=== PATIENT | female | born 1980 | race Caucasian/White ===

== ENCOUNTER → 2019-06-14 | Outpatient (CLI) | payer BC ==
--- NOTE | 2019-06-14 15:04 | RAD ---
HAND RIGHT 2V: DATE: 06/14/2019 12:00 AM INDICATION: Shut door on hand COMPARISON: None. FINDINGS: Bones: There is no evidence of acute fracture or dislocation. Joints: The joint spaces are normal. Miscellaneous: None. IMPRESSION: No evidence of acute fracture. Electronically signed by: Kushal Jordan MD (06/14/2019 3:01 PM) [id number]
== END | disposition home or self-care (01) ==
LOC: DXRAD 08:09
PROVIDERS: ATTEND Physician Assistant Medical
DX: M79.644 Pain in right finger(s) (principal)
CPT/HCPCS: 73120